=== PATIENT | female | born 1970 | race Caucasian/White ===

== ENCOUNTER 2016-11-17 08:03 | Day surgery (SDC) | payer BC ==
[2016-11-10 11:42] VITALS: BMI 20.3
[~2016-11-17 08:03] MED LIST: LACTATED RINGERS 1,000 ML IV SCH
[2016-11-17 09:01] VITALS: RESP 18; TEMP 98.4
[2016-11-17] MEDS ORDERED: PROPOFOL 10 MG/ML 20 ML VIAL IV ONE (09:07)
[2016-11-17] MEDS ORDERED: LIDOCAINE 1% INJ 10MG/ML (20 ML MDV) ONE (09:07)
--- NOTE | 2016-11-17 09:20 | P.PCN ---
Date of Procedure: 11/17/16 Procedure(s) Performed: BRIEF HISTORY: Patient is a 45-year-old, pleasant, white female, scheduled for an upper endoscopy as a part of evaluation of the ascending history of gastroesophageal reflux symptoms for which she is on Prilosec 20 mg daily and doing well. Recently has been having some sore throat and the globus sensation and occasional dysphagia. She is hence scheduled for an upper endoscopy with possible dilation. PROCEDURE PERFORMED: Esophagogastroduodenoscopy with biopsy. PREOPERATIVE DIAGNOSIS: Long-standing history of GERD/globus pharyngeus. IV sedation per anesthesia. PROCEDURE: After informed consent was obtained, the patient was brought into the endoscopy unit. IV conscious sedation was administered by Anesthesia under continuous monitoring. Initially the Olympus GIF-140 video endoscope was inserted into the mouth. Esophagus intubated without any difficulty. It was gradually advanced into the stomach and duodenum and carefully examined. The bulb and the second part of the duodenum appeared normal. The scope at this time was withdrawn to the stomach, adequately insufflated with air, and upon careful examination, mucosa of the antrum, had a 5-6 mm the submucosal polyp that was biopsied. The body, cardia and the fundus appeared normal. The scope was then withdrawn into the esophagus. The GE junction was located at 39 cm from the incisors. The esophagus appeared normal. There were no erosions or ulcerations seen and the patient tolerated the procedure well. IMPRESSION: 1. 5-6 mm submucosal polyp in the antrum of the stomach status post biopsy. 2. Normal-appearing esophagus with no evidence of esophagitis or esophageal stricture. RECOMMENDATIONS: The findings of this examination were discussed with the patient as well as her family. She was advised to follow with the biopsy results. In the meantime she will continue with Prilosec 20 mild grams daily and continue to follow antireflux measures..
[2016-11-17 09:45] VITALS: BP 98/67; PULSE 73
== END 2016-11-17 09:56 | disposition home or self-care (01) ==
LOC: ORWHC2ENDO 08:03
PROVIDERS: ATTEND Internal Medicine Gastroenterology
DX: K29.50 Unspecified chronic gastritis without bleeding (principal); K31.7 Polyp of stomach and duodenum; K21.9 Gastro-esophageal reflux disease without esophagitis; F45.8 Other somatoform disorders; J02.9 Acute pharyngitis, unspecified; Z79.899 Other long term (current) drug therapy
CPT/HCPCS: 81025; 88305; 88342; 43239; J2001; J2704

== ENCOUNTER → 2016-12-31 | Outpatient (CLI) | payer BC ==
--- NOTE | 2017-01-01 13:06 | ECHOF ---
Referral Reason:C50.42 breast ca Z01.818 chemo MEASUREMENTS -------- HEIGHT: 165.1 cm WEIGHT: 55.8 kg BP: 108/56 RVIDd: 2.3 cm (< 3.3) IVSd: 1.0 cm (0.6 - 1.1) LVIDd: 4.2 cm (3.9 - 5.3) LVPWd: 0.9 cm (0.6 - 1.1) IVSs: 1.2 cm LVIDs: 2.7 cm LVPWs: 1.2 cm LA Diam: 2.5 cm (2.7 - 3.8) LAESV Index (A-L): 20.67 ml/m Ao Diam: 3.1 cm (2.0 - 3.7) AV Cusp: 2.4 cm (1.5 - 2.6) MV EXCURSION: 14.056 mm (> 18.000) MV EF SLOPE: 141 mm/s (70 - 150) EPSS: 0.5 cm MV E Dany: 0.85 m/s MV DecT: 163 ms MV A Dany: 0.44 m/s MV E/A Ratio: 1.94 RAP: 5.00 mmHg RVSP: 16.42 mmHg FINDINGS -------- Sinus rhythm. This was a technically good study. The left ventricular size is normal. Left ventricular wall thickness is normal. Overall left ventricular systolic function is normal with, an EF between 55 - 60 %. The right ventricle is normal in size and function. Normal LA size by volume 22+/-6 ml/m2. The right atrium is normal in size. The aortic valve is trileaflet and appears structurally normal. The mitral valve leaflets are mildly thickened. The tricuspid valve appears structurally normal. Trace/mild (physiologic) pulmonic regurgitation. The aortic root size is normal. The inferior vena cava is mildly dilated. The pericardium is normal. CONCLUSIONS -------- 1. Sinus rhythm. 2. The mitral valve leaflets are mildly thickened. 3. The tricuspid valve appears structurally normal. 4. Trace/mild (physiologic) pulmonic regurgitation. 5. The aortic root size is normal. 6. The inferior vena cava is mildly dilated. 7. The pericardium is normal. 8. This was a technically good study. 9. The left ventricular size is normal. 10. Left ventricular wall thickness is normal. 11. Overall left ventricular systolic function is normal with, an EF between 55 - 60 %. 12. The right ventricle is normal in size and function. 13. Normal LA size by volume 22+/-6 ml/m2. 14. The right atrium is normal in size. 15. The aortic valve is trileaflet and appears structurally normal. DYEING MACHINE BACK TENDER: Gaviota Segura RDCS
== END | disposition home or self-care (01) ==
LOC: RADECHMAIN 13:54
PROVIDERS: ATTEND Internal Medicine Hematology & Oncology
DX: C50.919 Malignant neoplasm of unspecified site of unspecified female breast (principal); I05.9 Rheumatic mitral valve disease, unspecified
CPT/HCPCS: 93306

== ENCOUNTER 2017-03-25 06:54 | Day surgery (SDC) | payer BC ==
[2017-03-21 10:25] VITALS: BMI 19.5
[~2017-03-25 06:54] MED LIST changes: +LIDOCAINE 1% 20 ML VIAL (10MG/ML) FOR IV START INTRADERMA PRN
[2017-03-25 07:16] VITALS: TEMP 97.6
[2017-03-25] MEDS ORDERED: PROPOFOL 10 MG/ML 20 ML VIAL IV ONE (07:42)
[2017-03-25] MEDS ORDERED: ePHEDrine 50 MG/ML 1 ML AMP ONE (07:42)
--- NOTE | 2017-03-25 08:12 | P.OP ---
Date of Procedure: 03/25/17 Preoperative Diagnosis: Family H/O colon ca Personal H/O breast ca Postoperative Diagnosis: Same Procedure(s) Performed: Colonoscopy with biopsy Implants: NA Anesthesia: MAC Surgeon: Danica Alberto Pathology: other Condition: stable Disposition: PACU Indications for Procedure: 46 years old female with family history of colon cancer presents for screening colonoscopy. Informed consent obtained and she elected to undergo the procedure Operative Findings: Single 5 mm sigmoid colon polyp Small internal hermorrhoids Description of Procedure: The patient was brought to the endoscopy suite and placed in lateral decubitus position. IV sedation was given as per anesthesia team. Patient was on continuous vitals and pulse oximetry monitoring throughout the procedure. A timeout was performed to verify correct patient and correct procedure. Perianal examination did not show any external hemorrhoids. Digital rectal examination was performed. No masses or gross blood. A well-lubricated Olympus colonoscope was passed per rectally and was gradually advanced beyond the sigmoid colon, splenic flexure, transverse colon, hepatic flexure and cecum. The ileocecal valve was visualized as well as the appendiceal orifice . The colonoscope was gradually withdrawn inspecting all the mucosal surfaces. Bowel prep was good. No masses, AV malformations noted. Single 5 mm sigmoid colon polyp which was removed using cold biopsy forceps. No sigmoid diverticulosis seen The scope was gradually withdrawn and retroflexed in the rectum . Grade 1 internal hemorrhoids seen. Total withdrawal time was greater than 6 minutes . Patient tolerated the procedure well and was taken to post anesthesia care unit in stable condition. Recommend repeat colonoscopy in 5 years . Final pathology: COLON, SIGMOID, BIOPSY: MATURE BENIGN COLONIC MUCOSA WITH A NORMAL CRYPT ARCHITECTURE AND FOCAL LYMPHOID AGGREGATE FORMATION.
[2017-03-25 08:17] VITALS: RESP 16
[2017-03-25 08:57] VITALS: BP 98/69; PULSE 62
--- NOTE | 2017-04-11 11:43 | P.GSHP ---
History of Present Illness H&P Date: 03/25/17 Chief Complaint: Rectal bleeding 46 yrs old female presents with bright red rectal bleeding. No change in bowel habits. 6lbs weight loss. S/P bilateral mastectomy with radiation and chemotherapy diagnosed in October 2015. Family history of colon cancer ROS Additionally reports: Constitutional: No fever, chills or rigors. HEENT: No difficulty with hearing, vision and swallowing. Lymphatic: No axillary, inguinal and cervical swellings. Endocrine: No thyroid disorders. Denies history of diabetes. Respiratory: No chest pain, shortness of breath, and cough. No hemoptysis. Cardiovascular: No palpitations, irregular HR Gastrointestinal: Has heartburn. No nausea or vomiting. Genitourinary: No increase in urinary frequency or urgency. No hematuria. Musculoskeletal: Has back pain, joint stiffness Neurologic: No history of seizure disorder and headaches. Psychiatric: Denies depression or anxiety . No suicidal ideation. Hematologic: Denies any abnormal mucosal bleeding or easy bruising. Physical Exam Patient is a 46-year-old female. Constitutional: General Appearance: healthy-appearing, well-nourished, and well- developed. Level of Distress: NAD. Ambulation: ambulating normally. Psychiatric: Insight: good judgement. Orientation: to time, place, and person. Head: Head: normocephalic and atraumatic. Eyes: Lids and Conjunctivae: no discharge or pallor and non-injected. Sclerae: non-icteric. ENMT: Oropharynx: moist mucous membranes. Abdomen: Bowel Sounds: normal. Inspection and Palpation: no tenderness or guarding and soft and non-distended. Musculoskeletal:: Motor Strength and Tone: normal and normal tone. Joints, Bones , and Muscles: normal movement of all extremities. Extremities: no cyanosis or edema. Neurologic: Gait and Station: normal gait and station. Cranial Nerves: grossly intact. Assessment / Plan 1. Colonoscopy with possible biopsy 2. Informed consent obtained from the patient after explaining the risks, benefits and potential complications of colonoscopy including bleeding and perforation 3. Patient demonstrated understanding of the procedure and agreed to undergo colonoscopy with possible biopsy/polypectomy 4. Escript for bowel prep 1. Painless rectal bleeding K62.5: Hemorrhage of anus and rectum 2. History of malignant neoplasm of breast Z85.3: Personal history of malignant neoplasm of breast 3. Family history of cancer of colon Z80.0: Family history of malignant neoplasm of digestive organs Past Medical History Past Medical History: Cancer, GERD/Reflux, Thyroid Disorder Additional Past Medical History / Comment(s): hiatal hernia, hx. breast cancer 2016-chemo & radiation, probable celiac disease, , RECENT DX EARLY Krzysztof's History of Any Multi-Drug Resistant Organisms: None Reported Past Surgical History: Breast Surgery Additional Past Surgical History / Comment(s): bilateral mastectomy w/ reconstruction,lymphnodes removed-states "cannot have IVs to left arm." COLONOSCOPY. EGD 11/17/16 Past Anesthesia/Blood Transfusion Reactions: Postoperative Nausea & Vomiting ( PONV) Smoking Status: Former smoker - Past Family History Mother Family Medical History: No Reported History Medications and Allergies Home Medications Medication Instructions Recorded Confirmed Type Cholecalciferol [Vitamin D3] 2,000 unit PO DAILY 11/10/16 03/25/17 History Cyanocobalamin (Vitamin B-12) 1,000 mcg PO DAILY 11/10/16 03/25/17 History [Vitamin B-12] Magnesium 200 mg PO DAILY 11/10/16 03/25/17 History Enfield-3 Fatty Acids [Enfield-3] 1,000 mg PO DAILY 11/10/16 03/25/17 History Omeprazole [PriLOSEC] 20 mg PO AC-BRKFST 11/10/16 03/25/17 History Pyridoxine [Vitamin B-6] 50 mg PO DAILY 11/10/16 03/25/17 History Tamoxifen [Nolvadex] 10 mg PO DAILY 11/10/16 03/25/17 History Venlafaxine HCl [Effexor] 37.5 mg PO DAILY 03/21/17 03/25/17 History Allergies Allergy/AdvReac Type Severity Reaction Status Date / Time amoxicillin [Amoxicillin] Allergy Rash/Hives Verified 03/21/17 10:19 gluten Allergy GI problems Verified 03/21/17 10:19 Penicillins Allergy Rash/Hives Verified 03/21/17 10:19 Surgical - Exam Vital Signs Temp Pulse Resp BP Pulse Ox 97.6 F 67 14 102/69 99 03/25/17 07:15 03/25/17 07:15 03/25/17 07:15 03/25/17 07:15 03/25/17 07:15
== END 2017-03-25 09:08 | disposition home or self-care (01) ==
LOC: ORWHC2ENDO 06:54
PROVIDERS: ATTEND Surgery
DX: Z12.11 Encounter for screening for malignant neoplasm of colon (principal); K63.5 Polyp of colon; K64.8 Other hemorrhoids; Z80.0 Family history of malignant neoplasm of digestive organs; Z87.19 Personal history of other diseases of the digestive system; K21.9 Gastro-esophageal reflux disease without esophagitis; E06.3 Autoimmune thyroiditis; Z85.3 Personal history of malignant neoplasm of breast; Z92.21 Personal history of antineoplastic chemotherapy; Z92.3 Personal history of irradiation; Z90.13 Acquired absence of bilateral breasts and nipples; Z79.899 Other long term (current) drug therapy; Z88.1 Allergy status to other antibiotic agents; Z88.0 Allergy status to penicillin; Z91.018 Allergy to other foods; Z87.891 Personal history of nicotine dependence
CPT/HCPCS: 81025; 88305; 45380; J2704

== ENCOUNTER → 2017-11-17 | Outpatient (CLI) | payer BC ==
[2017-11-17 10:13] LABS: T4, Free (Free Thyroxine) 0.89 ng/dL (0.78-2.19)
== END | disposition home or self-care (01) ==
LOC: LABWHC1 08:59
PROVIDERS: ATTEND Clinical Nurse Specialist Women's Health
DX: Z13.220 Encounter for screening for lipoid disorders (principal); Z86.39 Personal history of other endocrine, nutritional and metabolic disease
CPT/HCPCS: 36415; 80061; 84439; 84443; 84481; 86376

== ENCOUNTER → 2018-02-02 | Outpatient (CLI) | payer BC ==
--- NOTE | 2018-02-02 14:35 | NM ---
EXAMINATION TYPE: NM bone scan whole body DATE OF EXAM: 02/02/2018 COMPARISON: NONE HISTORY: Breast CA C50.412, M54.9 Back Pain,Z03.89 Observe Delayed whole-body scanning was performed following the injection of 23.8 mCi Tc 99m MDP. Images acq uired 3.25 hours post injection. FINDINGS: There is homogeneous distribution radiotracer without evidence for intense uptake to suggest metastat ic disease or fracture. Mild degenerative uptake is noted about the shoulders, sternoclavicular joint s and cervical spine. IMPRESSION: No evidence for metastatic uptake at this time.
== END | disposition home or self-care (01) ==
LOC: RADNMMAIN 10:23
PROVIDERS: ATTEND Internal Medicine Hematology & Oncology
DX: C50.412 Malignant neoplasm of upper-outer quadrant of left female breast (principal); M54.9 Dorsalgia, unspecified; Z88.0 Allergy status to penicillin
CPT/HCPCS: 78306; A9503

== ENCOUNTER → 2019-10-29 | Outpatient (CLI) | payer BC ==
--- NOTE | 2019-10-30 09:13 | CT ---
EXAMINATION TYPE: CT ChestAbdPelvis w con DATE OF EXAM: 10/29/2019 COMPARISON: CT abdomen pelvis dated 01/27/2012 HISTORY: Left sided abdominal pain and cough. History of left sided breast cancer. CT DLP: 482.3 mGycm. Automated Exposure Control for Dose Reduction was Utilized. CONTRAST: CT scan of the thorax, abdomen and pelvis is performed with IV Contrast, patient injected with 100ml mL of Isovue 300. FINDINGS: LUNGS: There is biapical pleural parenchymal scarring. There is a 2 x 3 mm left upper lobe groundglas s nodule on series 5 image 14. Possible post radiation change or scarring is seen along the anterior left upper lobe posterior to the left breast implant. The lungs are grossly clear, there is no concer millicent parenchymal mass or nodule identified. There is no pleural effusion or pneumothorax seen. The tracheobronchial tree is patent. MEDIASTINUM: There are no greater than 1 cm hilar or mediastinal lymph nodes. No pericardial effusi on is seen. OTHER: There are bilateral breast implants and sequela of left axillary lymph node dissection. Bilat eral mastectomies have been performed. No suspicious internal mammary adenopathy nor supraclavicular adenopathy. No suspicious right axillary adenopathy. LIVER/GB: Hepatic parenchyma is diffusely hypoattenuated in comparison to that of the spleen, most co mmonly seen in hepatic steatosis. This finding limits evaluation for hepatic masses. No gross evidenc e of hepatic mass is seen. No intrahepatic biliary ductal dilatation. No radiopaque evidence of liang lithiasis on CT. PANCREAS: No significant abnormality is seen. No ductal dilatation. SPLEEN: No splenomegaly. Punctate splenule is seen adjacent to the spleen. ADRENALS: No nodularity or thickening. KIDNEYS: Kidneys enhance and excrete symmetrically without hydronephrosis. BOWEL: No dilated large or small bowel. Mild degree colonic fecal stasis. GENITAL ORGANS: There is a left adnexal lesion that is multiloculated measuring 6.1 x 4.3 cm. Pelvic ultrasound is recommended for further characterization. LYMPH NODES: No greater than 1cm abdominal or pelvic lymph nodes are appreciated. OSSEOUS STRUCTURES: There is a 1.0 cm lucent lesion of the T6 vertebral body that appears to have str ipe sign and is most likely related to a benign hemangioma. This could be confirmed with MRI of the t horacic spine. Remainder the osseous structures demonstrate no suspicious lesion. Minimal degenerativ e change. IMPRESSION: 1. Probable thoracic spine vertebral body hemangioma that could be confirmed with MRI of the thoracic spine. 2. Hepatic steatosis, although limits evaluation for hepatic masses no focal hepatic mass is seen on today's exam. 3. Left adnexal 6.1 cm hypoattenuated probable cystic lesion. Pelvic ultrasound is recommended for fu rther characterization and to assess for vascular flow as this size increases the risk of ovarian tor darian. 4. Subtle 2 x 3 mm left upper lobe groundglass nodule that could be inflammatory, less likely infecti ous or less likely neoplastic. Follow-up CT thorax should be considered in 3-6 months.
== END | disposition home or self-care (01) ==
LOC: RADCTMAIN 15:09
PROVIDERS: ATTEND Internal Medicine Hematology & Oncology
DX: K76.0 Fatty (change of) liver, not elsewhere classified (principal); Z88.0 Allergy status to penicillin; C50.412 Malignant neoplasm of upper-outer quadrant of left female breast
CPT/HCPCS: 71260; 74177; Q9967

== ENCOUNTER → 2019-11-08 | Outpatient (CLI) | payer BC ==
[2019-11-08 17:17] LABS: Basophils % (A) 1 %; Eosinophils # (A) 0.1 k/uL (0-0.7); Eosinophils % (A) 2 %; HCT 33.7 % (34.0-46.0); HGB 11.1 gm/dL (11.4-16.0); Lymphocytes # (A) 1.6 k/uL (1.0-4.8); Lymphocytes % (A) 32 %; MCV 90.9 fL (80.0-100.0); Mean Platelet Volume 7.9; Monocytes # (A) 0.4 k/uL (0-1.0); Monocytes % (A) 7 %; Neutrophils % (A) 58 %; Platelet Count 205 k/uL (150-450); RBC 3.71 m/uL (3.80-5.40); RDW 12.5 % (11.5-15.5); WBC 5.1 k/uL (3.8-10.6)
== END | disposition home or self-care (01) ==
LOC: LABPAT 15:30
PROVIDERS: ATTEND Obstetrics & Gynecology
DX: Z01.818 Encounter for other preprocedural examination (principal); R93.5 Abnormal findings on diagnostic imaging of other abdominal regions, including retroperitoneum
CPT/HCPCS: 36415; 85025

== ENCOUNTER 2019-11-13 07:07 | Day surgery (SDC) | payer BC ==
[~2019-11-13 07:07] MED LIST changes: +DEXAMETHASONE SOD PHOSPHATE 10 MG/ML 1 ML VIAL IV ONE; -LIDOCAINE 1% 20 ML VIAL (10MG/ML) FOR IV START INTRADERMA PRN; +MIDAZOLAM 2 MG/2 ML VIAL IV PRN; +ONDANSETRON 4 MG/2 ML VIAL IVP ONE; +Pre Op ABX Message 1 EACH MISC MISCELLANE ONE; +SCOPOLAMINE 1.5MG/72HR PATCH TRANSDERM ONE
[2019-11-13] MEDS ORDERED: LIDOCAINE 1% INJ 10MG/ML (20 ML MDV) ONE (08:18)
[2019-11-13] MEDS ORDERED: KETOROLAC 30 MG/ML 1 ML VIAL ONE (08:18)
[2019-11-13] MEDS ORDERED: MIDAZOLAM 2 MG/2 ML VIAL ONE (08:18)
[2019-11-13] MEDS ORDERED: fentaNYL (PF) 50 MCG/ML 2 ML AMP ONE (08:18)
[2019-11-13] MEDS ORDERED: PROPOFOL 10 MG/ML 20 ML VIAL IV ONE (08:18)
[2019-11-13 09:00] VITALS: TEMP 97.7
[2019-11-13] MEDS ORDERED: KETOROLAC 30 MG/ML 1 ML VIAL IVP PRN (09:03)
[2019-11-13] MEDS ORDERED: Acetaminophen-Codeine 300-30mg TAB PO PRN ×2 (09:03)
[2019-11-13] MEDS ORDERED: SIMETHICONE 80 MG CHEWABLE PO PRN (09:03)
[2019-11-13] MEDS ORDERED: METOCLOPRAMIDE 5 MG/ML 2 ML VIAL IVP PRN (09:03)
[2019-11-13] MEDS ORDERED: IBUPROFEN 600 MG TAB PO PRN (09:03)
[2019-11-13] MEDS ORDERED: ONDANSETRON 4 MG/2 ML VIAL IVP PRN (09:03)
[2019-11-13] MEDS: HYDROmorphone 0.5 MG/0.5 ML SYRINGE IVP PRN ×2 (09:07→09:25)
--- NOTE | 2019-11-13 09:10 | P.OP ---
Date of Procedure: 11/13/19 Preoperative Diagnosis: #1. Thickened endometrial stripe on tamoxifen Postoperative Diagnosis: Same Procedure(s) Performed: #1. Diagnostic hysteroscopy #2. Dilation and curettage Anesthesia: other (Gen. by LMA) Surgeon: Jonah Cardona Estimated Blood Loss (ml): 5 IV fluids (ml): 400 Urine output (ml): 20 Pathology: other (Endometrial curettings) Condition: stable Disposition: PACU Operative Findings: Preoperative pelvic examination demonstrated a 4 week anteverted mobile normal shaped uterus with normal adnexa bilaterally. Intraoperatively, the uterus sounded to approximately 8 cm. Using the hysteroscope, there were some areas that appeared to be potentially cystic in the left cornual region but, overall, the entire endometrial cavity appeared entirely atrophic. Curettage produced a minimal to no tissue despite thorough and circumferential curettage. The typical gritty texture was encountered throughout. Description of Procedure: The patient was prepped and draped in usual fashion after general anesthesia was administered by the anesthesiologist. A weighted speculum was placed in the bladder draining approximately 20 mL of clear delfino urine. The anterior lip of the cervix was grasped with a single-tooth tenaculum and the uterus sounded to approximately 8 cm as noted above. Serial dilation was carried out to admit the diagnostic hysteroscope which was placed to the fundus and the uterus distended with saline. Findings are as noted above with what appeared to be atrophy throughout with some areas of banding near the top that could explain the potential cystic appearance on ultrasound. After adequate curettage been carried out and no evidence of pathology noted, the scope was removed and set aside in favor of a small sharp curette which was utilized to thoroughly and circumferentially curet the entire uterine cavity onto a Telfa placed in the vagina. The typical gritty texture was encountered throughout and there was minimal tissue returned. All instrumentation was then removed and the specimen sent for pathological diagnoses. There was no ongoing bleeding from either the cervix or the tenaculum site. Estimated blood loss for the case was less than 5 mL. There were no complications. All sponge, instrument, and needle counts were correct. The patient tolerated the procedure well and proceeded to the recovery room in stable condition.
[2019-11-13] MEDS ORDERED: LACTATED RINGERS 1,000 ML IV SCH (09:15)
[2019-11-13 09:34] VITALS: RESP 16
[2019-11-13 10:04] VITALS: BP 109/70; PULSE 65
== END 2019-11-13 10:24 | disposition home or self-care (01) ==
LOC: OR 07:07
PROVIDERS: ATTEND Obstetrics & Gynecology
DX: N80.9 Endometriosis, unspecified (principal); K21.9 Gastro-esophageal reflux disease without esophagitis; F41.9 Anxiety disorder, unspecified; D64.9 Anemia, unspecified; Z86.001 Personal history of in-situ neoplasm of cervix uteri; Z79.810 Long term (current) use of selective estrogen receptor modulators (SERMs); Z79.899 Other long term (current) drug therapy; Z88.0 Allergy status to penicillin; Z85.3 Personal history of malignant neoplasm of breast; Z90.13 Acquired absence of bilateral breasts and nipples; Z92.21 Personal history of antineoplastic chemotherapy; Z98.890 Other specified postprocedural states; Z88.1 Allergy status to other antibiotic agents; Z82.49 Family history of ischemic heart disease and other diseases of the circulatory system; Z80.49 Family history of malignant neoplasm of other genital organs
CPT/HCPCS: 81025; 88305; 58558; J2250; J2405; J2001; J3010; J1885; J2704; J1170

== ENCOUNTER → 2020-03-19 | Outpatient (CLI) | payer BC ==
[2020-03-19 08:50] LABS: Basophils % (A) 1 %; Eosinophils # (A) 0.1 k/uL (0-0.7); Eosinophils % (A) 3 %; HCT 36.9 % (34.0-46.0); HGB 11.6 gm/dL (11.4-16.0); Lymphocytes # (A) 1.4 k/uL (1.0-4.8); Lymphocytes % (A) 35 %; MCH 30.1 pg (25.0-35.0); MCHC 31.3 g/dL (31.0-37.0); Mean Platelet Volume 7.1; Monocytes # (A) 0.3 k/uL (0-1.0); Monocytes % (A) 6 %; Neutrophils # (A) 2.2 k/uL (1.3-7.7); Neutrophils % (A) 54 %; Platelet Count 210 k/uL (150-450); RBC 3.84 m/uL (3.80-5.40); RDW 12.3 % (11.5-15.5)
[2020-03-19 16:48] LABS: ALT 16 U/L (8-44); AST 24 U/L (13-35); African American GFR (CKD) 76.6 (60.0-200.0); Alkaline Phosphatase 46 U/L (41-126); Calcium 9.5 mg/dL (8.7-10.3); Carbon Dioxide 23.6 mmol/L (21.6-31.8); Chloride 107 mmol/L (96-109); Chol/HDL Ratio 1.66; Cholesterol 158 mg/dL (0-200); Glucose 97 mg/dL (70-110); Non-African American GFR(CKD) 66.1 (60.0-200.0); Potassium 3.9 mmol/L (3.5-5.5); Sodium 137 mmol/L (135-145); Total Bilirubin 0.4 mg/dL (0.2-1.2); Total Protein 6.4 g/dL (6.2-8.2); Triglycerides <50.0 mg/dL (0.0-149.0)
== END | disposition home or self-care (01) ==
LOC: LABWHC1 07:27
PROVIDERS: ATTEND Nurse Practitioner Adult Health
DX: Z00.00 Encounter for general adult medical examination without abnormal findings (principal); Z11.59 Encounter for screening for other viral diseases
CPT/HCPCS: 36415; 80053; 80061; 84439; 84443; 85025; 86803

== ENCOUNTER → 2020-12-15 | Outpatient (CLI) | payer BC ==
--- NOTE | 2020-12-16 09:59 | USB ---
Reason for exam: clinical finding. History: Patient has history of breast cancer at age 44 and is nulliparous. Malignant US biopsy breast VAD LT of the left breast, October 29, 2015. Malignant US biopsy breast add'l VAD LT of the left breast, October 29, 2015. Saline implants in both breasts, 2009. Benign excisional biopsy of the right breast, August 31, 2002. Mastectomy of both breasts. Took hormonal contraceptives for 3 years beginning at age 20. Indicated problem(s): lump or thickening in the left breast. Physical Findings: Nurse Summary: lump in left axilla x 3 weeks (nurse db). US Breast Axilla LT Left breast axilla ultrasound demonstrates a single nonenlarged, benign appearing node noted in the axilla. These results were verbally communicated with the patient and result sheet given to the patient on 12/15/20. ASSESSMENT: Benign, BI-RAD 2 RECOMMENDATION: Clinical management of the left breast. Manage on a clinical basis. Any persistent or enlarging palpable area can be rescanned.
== END | disposition home or self-care (01) ==
LOC: RADUSWWP 07:33
PROVIDERS: ATTEND Internal Medicine Hematology & Oncology
DX: Z85.3 Personal history of malignant neoplasm of breast (principal)

== ENCOUNTER → 2021-05-22 | Outpatient (CLI) | payer BC ==
[2021-05-22 12:08] LABS: Basophils # (A) 0.04 X 10*3/uL (0.00-0.10); Eosinophils # (A) 0.11 X 10*3/uL (0.04-0.35); Eosinophils % (A) 2.6 %; HCT 36.7 % (37.2-46.3); HGB 11.7 g/dL (12.0-15.0); Lymphocytes # (A) 1.55 X 10*3/uL (0.90-5.00); MCH 29.4 pg (27.0-32.0); MCHC 31.9 g/dL (32.0-37.0); MCV 92.2 fL (80.0-97.0); Mean Platelet Volume 10.1 fL (9.5-12.2); Monocytes % (A) 7.2 %; Neutrophils # (A) 2.18 X 10*3/uL (1.80-7.70); Platelet Count 235 X 10*3/uL (140-440); RBC 3.98 X 10*6/uL (4.10-5.20); RDW 12.1 % (11.5-14.5); WBC 4.19 X 10*3/uL (4.50-10.00)
[2021-05-22 17:15] LABS: Hemoglobin A1C 5.4 % (4.0-6.0)
[2021-05-22 17:21] LABS: African American GFR (CKD) 76.1 (60.0-200.0); Albumin 4.8 g/dL (3.80-4.90); Albumin/Globulin Ratio 2.4 (1.60-3.17); Anion Gap 11.5 mmol/L (4.00-12.00); Calcium 9.2 mg/dL (8.7-10.3); Carbon Dioxide 21.5 mmol/L (21.6-31.8); Chol/HDL Ratio 1.93; Non-African American GFR(CKD) 65.6 (60.0-200.0); Potassium 4.4 mmol/L (3.5-5.5); Total Bilirubin 0.2 mg/dL (0.3-1.2); Total Protein 6.8 g/dL (6.2-8.2)
[2021-05-22 17:28] LABS: T4, Free (Free Thyroxine) 1.1 ng/dL (0.80-1.80)
== END | disposition home or self-care (01) ==
LOC: LABWHC1 07:00
PROVIDERS: ATTEND Nurse Practitioner Adult Health
DX: Z00.00 Encounter for general adult medical examination without abnormal findings (principal); R63.5 Abnormal weight gain
CPT/HCPCS: 36415; 80053; 80061; 83036; 84439; 84443; 85025

== ENCOUNTER → 2021-11-20 | Outpatient (CLI) | payer BC ==
--- NOTE | 2021-11-20 15:07 | USB ---
Reason for exam: clinical finding. History: Patient has history of breast cancer at age 44 and is nulliparous. Malignant US biopsy breast VAD LT of the left breast, October 29, 2015. Malignant US biopsy breast add'l VAD LT of the left breast, October 29, 2015. Saline implants in both breasts, 2009. Benign excisional biopsy of the right breast, August 31, 2002. Mastectomy of both breasts. Took hormonal contraceptives for 3 years beginning at age 20. Indicated problem(s): lump or thickening in the right breast. Physical Findings: A clinical breast exam by your physician is recommended on an annual basis and results should be correlated with mammographic findings. US Breast Limited BILAT Technologist: Carolann Noriega Right limited breast ultrasound including focal area of concern, retroareolar and axilla demonstrates a 0.8 x 0.6 x 0.3cm oval, obscured, avascular, hypoechoic lesion at 3 o'clock palpable, 8cm from nipple Left limited breast ultrasound including focal area of concern, retroareolar and axilla demonstrates no cystic or solid lesion seen. ASSESSMENT: Suspicious, BI-RAD 4 RECOMMENDATION: Surgical consultation and ultrasound core biopsy of the right breast. (FNA +/- Core) Subpectoral implants, high risk. Called Dr. Vivar's office with mammographic findings. Patient following up with her surgeon Dr. Ashley Jefferson. PRELIMINARY REPORT CALLED AND FAXED TO DR. JEFFERSON ON 11/20/21. Breast MRI of both breasts. Consider further imaging.
== END | disposition home or self-care (01) ==
LOC: RADUSWWP 12:42
PROVIDERS: ATTEND Internal Medicine Hematology & Oncology
DX: N63.0 Unspecified lump in unspecified breast (principal); Z90.13 Acquired absence of bilateral breasts and nipples; Z85.3 Personal history of malignant neoplasm of breast

== ENCOUNTER → 2022-03-18 | Outpatient (CLI) | payer BC ==
--- NOTE | 2022-03-18 10:53 | CT ---
EXAMINATION TYPE: CT abdomen pelvis wo con CT DLP: 614 mGycm, Automated exposure control for dose reduction was used. DATE OF EXAM: 03/18/2022 10:35 AM COMPARISON: 10/29/2019 CLINICAL INDICATION:Female, 51 years old with history of R10.32 LLQ pain; Left lower quadrant pain, s tomach pains TECHNIQUE: Axial CT of the abdomen and pelvis . Sagittal and coronal reformats were created on a [employer] workstation. Contrast used: None Oral contrast used: without Oral Contrast FINDINGS: LOWER CHEST: Partially visualized breast implants. ABDOMEN LIVER: Unremarkable GALLBLADDER AND BILE DUCTS: Unremarkable. PANCREAS: Unremarkable. SPLEEN: Unremarkable. ADRENAL GLANDS: Unremarkable. KIDNEYS AND URETERS: No evidence of hydronephrosis or renal calculus. The ureters are unremarkable. PELVIS BLADDER: Unremarkable REPRODUCTIVE: Unremarkable. ABDOMEN & PELVIS STOMACH AND BOWEL: Stomach is dilated with ingested contents. No definitive abnormality of the stomac h or duodenum. The large intestine infiltrates mild/moderate stool burden. No evidence of bowel obstr uction. PERITONEUM: No evidence of pneumoperitoneum or free fluid. VASCULATURE: No evidence of aortic aneurysm. MUSCULOSKELETAL: No acute osseous abnormalities. LYMPH NODES: No gross evidence for lymphadenopathy. SOFT TISSUE/ABDOMINAL WALL: Unremarkable IMPRESSION: No acute intra-abdominal process.
== END | disposition home or self-care (01) ==
LOC: RADCTMAIN 10:15
PROVIDERS: ATTEND Family Medicine
DX: R10.32 Left lower quadrant pain (principal)
CPT/HCPCS: 74176

== ENCOUNTER → 2022-07-21 | Outpatient (CLI) | payer BC ==
[2022-07-21 15:35] LABS: Basophils # (A) 0.05 X 10*3/uL (0.00-0.10); Eosinophils # (A) 0.17 X 10*3/uL (0.04-0.35); Eosinophils % (A) 3.2 %; HCT 35.8 % (37.2-46.3); HGB 11.7 g/dL (12.0-15.0); Immature Grans, Automated 0.4 %; Lymphocytes # (A) 1.43 X 10*3/uL (0.90-5.00); Lymphocytes % (A) 27.3 %; MCH 29.7 pg (27.0-32.0); MCHC 32.7 g/dL (32.0-37.0); MCV 90.9 fL (80.0-97.0); Mean Platelet Volume 10.6 fL (9.5-12.2); Monocytes # (A) 0.63 X 10*3/uL (0.20-1.00); NRBC Per 100 WBC 0 /100 WBCS (0.0-0.0); Neutrophils # (A) 2.94 X 10*3/uL (1.80-7.70); Neutrophils % (A) 56.1 %; Platelet Count 211 X 10*3/uL (140-440); RBC 3.94 X 10*6/uL (4.10-5.20); RDW 12.2 % (11.5-14.5); WBC 5.24 X 10*3/uL (4.50-10.00)
[2022-07-21 17:08] LABS: % Iron Saturation 25.32 (12.00-45.00); ALT 20 U/L (8-44); AST 27 U/L (13-35); African American GFR (CKD) 80.1 (60.0-200.0); Albumin 4.4 g/dL (3.8-4.9); Albumin/Globulin Ratio 2.21 (1.60-3.17); Alkaline Phosphatase 47 U/L (41-126); BUN/Creat Ratio 15.42 Ratio (12.00-20.00); Blood Urea Nitrogen 14.7 mg/dL (9.0-27.0); Calcium 9.7 mg/dL (8.7-10.3); Carbon Dioxide 22.5 mmol/L (20.0-27.5); Chloride 104 mmol/L (96-109); Chol/HDL Ratio 1.91 Ratio; Glucose 98 mg/dL (70-110); Iron 95 ug/dL (50-170); LDL Cholesterol,Calculated 71.8 mg/dL (0.0-131.0); Non-African American GFR(CKD) 69.1 (60.0-200.0); Potassium 4.4 mmol/L (3.5-5.5); Sodium 138 mmol/L (135-145); Total Iron Binding Capacity 375 ug/dL (228-460); Total Protein 6.5 g/dL (6.2-8.2); VLDL Calculation 12.82 mg/dL (5.00-40.00)
== END | disposition home or self-care (01) ==
LOC: LABWHC1 09:00
PROVIDERS: ATTEND Family Medicine
DX: Z00.00 Encounter for general adult medical examination without abnormal findings (principal); R53.83 Other fatigue
CPT/HCPCS: 36415; 80053; 80061; 82306; 82607; 82746; 83036; 83540; 83550; 84439; 84443; 85025

== ENCOUNTER 2023-05-16 20:16 | Emergency (ER) | payer BC ==
--- NOTE | 2023-05-16 20:22 | ED ---
Chest Pain HPI - General Source: patient, RN notes reviewed Mode of arrival: wheelchair Limitations: no limitations - History of Present Illness MD Complaint: chest pain <Betty Barraza - Last Filed: 05/16/23 21:31> <Best George - Last Filed: 05/16/23 23:37> - General Chief Complaint: Chest Pain Stated Complaint: Chest Pain,sob, dizziness Time Seen by Provider: 05/16/23 20:20 - History of Present Illness Initial Comments: This is a 52 year old female who presents to the emergency department for chest pain and shortness of breath. States that this occurred 45 minutes after drinking wine and eating half of a marijuana gummy. Also feels somewhat dizzy and states that her mouth is dry and she feels dehydrated. Denies any cardiac history. (Betty Barraza) This is a 52-year-old female with a past medical history including previous breast cancer in remission presented to the emergency department for palpitations and chest pain. The patient stated that she was doing her normal routine at night and after dinner experienced chest pressure and palpitations. The patient stated that his been ongoing for the last several hours and stated that she was concerned about this. On arrival, the patient did state that she had continued central chest pressure and stated that her palpitations have improved. The patient denied any shortness of breath however and was otherwise resting in bed comfortably. The patient did state that she took a marijuana gummy prior to arrival but stated that she has done this multiple times in the past. The patient denied any other acute pain or complaints at this time. (Best George) - Related Data Home Medications Medication Instructions Recorded Confirmed Cyanocobalamin (Vitamin B-12) 1,000 mcg PO DAILY 11/10/16 11/08/19 [Vitamin B-12] Tamoxifen [Nolvadex] 20 mg PO HS 11/10/16 11/08/19 Cholecalciferol (Vitamin D3) 1 tab PO DAILY 11/08/19 11/08/19 [Vitamin D3] L.acidoph,Paracasei, B.lactis 1 cap PO DAILY 11/08/19 11/08/19 [Probiotic] LORazepam [Ativan] 0.5 mg PO BID PRN 11/08/19 11/08/19 Venlafaxine HCl [Effexor] 75 mg PO HS 11/08/19 11/08/19 Allergies Allergy/AdvReac Type Severity Reaction Status Date / Time amoxicillin [Amoxicillin] Allergy Rash/Hives Verified 05/16/23 20:21 gluten Allergy GI problems Verified 05/16/23 20:21 Penicillins Allergy Rash/Hives Verified 05/16/23 20:21 Review of Systems ROS Other: All systems not noted in ROS Statement are negative. <Betty Barraza - Last Filed: 05/16/23 21:31> ROS Other: All systems not noted in ROS Statement are negative. <Best George - Last Filed: 05/16/23 23:37> ROS Statement: Those systems with pertinent positive or pertinent negative responses have been documented in the HPI. EKG Findings - EKG Comments: EKG Findings:: An EKG was obtained and was interpreted by myself showing a rate of 138, AK interval 144, QR zoroastrianism of 66 and QTC of 536. This EKG showed a sinus tachycardia with no ST segment elevation or depression noted. <Best George - Last Filed: 05/16/23 23:37> Past Medical History Past Medical History: Cancer, GERD/Reflux, Thyroid Disorder Additional Past Medical History / Comment(s): hiatal hernia, hx. breast cancer 2016-chemo & radiation, probable celiac disease, , RECENT DX EARLY [facility]to[facility] History of Any Multi-Drug Resistant Organisms: None Reported Past Surgical History: Breast Surgery Additional Past Surgical History / Comment(s): bilateral mastectomy w/reconstruction,lymphnodes removed-states "cannot have IVs to left arm." COLONOSCOPY. EGD 11/17/16 Past Anesthesia/Blood Transfusion Reactions: Postoperative Nausea & Vomiting (PONV) Past Psychological History: No Psychological Hx Reported Past Alcohol Use History: Occasional Additional Past Alcohol Use History / Comment(s): quit smoking in high school, only smoked for short time Past Drug Use History: None Reported - Past Family History Mother Family Medical History: No Reported History <Betty Barraza - Last Filed: 05/16/23 21:31> General Exam <Betty Barraza - Last Filed: 05/16/23 21:31> Limitations: no limitations General appearance: alert, in no apparent distress Head exam: Present: atraumatic, normocephalic, normal inspection Eye exam: Present: normal appearance, PERRL Pupils: Present: normal accommodation ENT exam: Present: normal exam, normal oropharynx, mucous membranes moist Neck exam: Present: normal inspection, full ROM Respiratory exam: Present: normal lung sounds bilaterally. Absent: respiratory distress Cardiovascular Exam: Present: regular rate, normal rhythm, normal heart sounds GI/Abdominal exam: Present: soft, normal bowel sounds Extremities exam: Present: normal inspection, full ROM Back exam: Present: normal inspection, full ROM Neurological exam: Present: alert, oriented X3, CN II-XII intact Psychiatric exam: Present: normal affect, normal mood Skin exam: Present: warm, dry <Best George - Last Filed: 05/16/23 23:37> - General Exam Comments Initial Comments: Visual Physical Exam Vital signs reviewed General: Well-appearing, nontoxic, no acute distress. Head: Normocephalic, atraumatic Eyes: PERRLA, EOMI ENT: Airway patent Chest: Nonlabored breathing Skin: No visual rash, normal skin tone Neuro: Alert and oriented 3 Musculoskeletal: No gross abnormalities I performed the QuickNote portion of this chart. Signed Betty Barraza PA-C. (Betty Barraza) Course Vital Signs 05/16/23 05/16/23 05/16/23 20:17 21:46 23:12 Temperature 98.6 F Pulse Rate 136 H 86 87 Respiratory 20 18 18 Rate Blood Pressure 132/82 127/88 121/85 O2 Sat by Pulse 99 100 98 Oximetry Chest Pain MDM <Best George - Last Filed: 05/16/23 23:37> - MDM Was pt. sent in by a medical professional or institution (STEPHANIE Tejeda, SUPPLY CHAIN ASSISTANT, urgent care, hospital, or detention...) When possible be specific @ -No Did you speak to anyone other than the patient for history (EMS, parent, family, police, friend...)? What history was obtained from this source @ -No Did you review nursing and triage notes (agree or disagree)? Why? @ -I reviewed and agree with nursing and triage notes Were old charts reviewed (outside hosp., previous admission, EMS record, old EKG, old radiological studies, urgent care reports/EKG's, detention records)? Report findings @ -No old charts were reviewed Differential Diagnosis (chest pain, altered mental status, abdominal pain women, abdominal pain men, vaginal bleeding, weakness, fever, dyspnea, syncope, head ache, dizziness, GI bleed, back pain, seizure, CVA, palpatations, mental health)? @ -ACS, pneumonia, pneumothorax EKG interpreted by me (3pts min.). @ -As above X-rays interpreted by me (1pt min.). @ -Chest x-ray was obtained and was interpreted by myself showing no acute process. CT interpreted by me (1pt min.). @ -None done U/S interpreted by me (1pt. min.). @ -None done What testing was considered but not performed or refused? (CT, X-rays, U/S, labs)? Why? @ -None What meds were considered but not given or refused? Why? @ -None Did you discuss the management of the patient with other professionals (professionals i.e. , PA, SUPPLY CHAIN ASSISTANT, lab, RT, psych nurse, social insurance specialist, oxygen therapy teacher, teacher, correction officer head, behavioral health case manager)? Give summary @ -No Was smoking cessation discussed for >3mins.? @ -No Was critical care preformed (if so, how long)? @ -No Were there social determinants of health that impacted care today? How? (Homelessness, low income, unemployed, alcoholism, drug addiction, transportation, low edu. Level, literacy, decrease access to med. care, long-term, rehab)? @ -No Was there de-escalation of care discussed even if they declined (Discuss DNR or withdrawal of care, Hospice)? DNR status @ -No What co-morbidities impacted this encounter? (DM, HTN, Smoking, COPD, CAD, Cancer, CVA, ARF, Chemo, Hep., AIDS, mental health diagnosis, sleep apnea, morbid obesity)? @ -Previous breast cancer in remission Was patient admitted / discharged? Hospital course, mention meds given and route, prescriptions, significant lab abnormalities, going to OR and other pertinent info. @ -The patient was seen and evaluated emergency department. Physical exam, the patient was resting in bed without any acute distress. The patient had mild symptoms on my evaluation however stated that her symptoms were greatly improved from when she first arrived. Vital signs remained stable. The patient was initially tachycardic but on my evaluation her heart rate is in the 90s. Laboratory workup, x-ray and EKG were obtained in triage. All workup was negative and within normal limits. On reevaluation, the patient stated that she didn't have any further symptoms however due to the patient's elevated heart rate and chest pressure, the patient was offered observation to be evaluated by cardiology. The patient however stated that she would prefer to be discharged to follow-up as an outpatient as she didn't have any further symptoms. I did agree with this plan as she did not have any other risk factors and her heart score was 1. The patient was advised report back to the [facility] department should worsening symptoms and the patient was agreeable to this. All of her questions were answered and the patient was discharged home in stable condition. Undiagnosed new problem with uncertain prognosis? @ -No Drug Therapy requiring intensive monitoring for toxicity (Heparin, Nitro, Insulin, Cardizem)? @ -No Were any procedures done? @ -No Diagnosis/symptom? @ -Chest pain and palpitations, NOS Acute, or Chronic, or Acute on Chronic? @ -Acute Uncomplicated (without systemic symptoms) or Complicated (systemic symptoms)? @ -Uncomplicated Side effects of treatment? @ -No Exacerbation, Progression, or Severe Exacerbation? @ -No Poses a threat to life or bodily function? How? (Chest pain, [place], [place], pneumonia, PE, COPD, DKA, ARF, appy, cholecystitis, CVA, Diverticulitis, Homicidal, Suicidal, threat to staff... and all critical care pts) @ -No (Best George) Disposition <Betty Barraza - Last Filed: 05/16/23 21:31> Is patient prescribed a controlled substance at d/c from ED?: No Time of Disposition: 22:30 <Best George - Last Filed: 05/16/23 23:37> Clinical Impression: Chest pain, Palpitation Disposition: HOME SELF-CARE Condition: Stable Instructions (If sedation given, give patient instructions): Chest Pain (ED), Heart Palpitations (DC) Referrals: Kyree Pérez MD [Primary Care Provider] - 1-2 days
[2023-05-16 20:23] VITALS: TEMP 98.6
[2023-05-16 21:04] LABS: Basophils % (A) 0 %; Eosinophils # (A) 0.1 k/uL (0-0.7); Eosinophils % (A) 2 %; HCT 36.6 % (34.0-46.0); HGB 12.2 gm/dL (11.4-16.0); Lymphocytes # (A) 2.9 k/uL (1.0-4.8); Lymphocytes % (A) 39 %; MCH 30.7 pg (25.0-35.0); MCHC 33.5 g/dL (31.0-37.0); MCV 91.6 fL (80.0-100.0); Mean Platelet Volume 7.6; Monocytes # (A) 0.5 k/uL (0-1.0); Monocytes % (A) 7 %; Neutrophils # (A) 3.8 k/uL (1.3-7.7); Neutrophils % (A) 50 %; Platelet Count 234 k/uL (150-450); RBC 3.99 m/uL (3.80-5.40); RDW 12.1 % (11.5-15.5); WBC 7.5 k/uL (3.8-10.6)
--- NOTE | 2023-05-16 21:16 | XR ---
EXAMINATION TYPE: XR chest 2V DATE OF EXAM: 05/16/2023 8:57 PM CLINICAL INDICATION:Female, 52 years old with history of Chest Pain; [facility] COMPARISON: Chest radiographs from 11/03/2015 TECHNIQUE: XR chest 2V Frontal and lateral views of the chest. FINDINGS: Lungs/Pleura: There is no evidence of pleural effusion, focal consolidation, or pneumothorax. Pulmonary vascularity: Unremarkable. Heart/mediastinum: Cardiomediastinal silhouette is unremarkable. Musculoskeletal: No acute osseous pathology. IMPRESSION: No acute cardiopulmonary disease/process.
[2023-05-16 21:19] LABS: ALT 25 U/L (4-34); AST 50 U/L (14-36); African American GFR (CKD) 79 (>60 ml/min/1.73 sqM); Albumin 5.1 g/dL (3.5-5.0); Alkaline Phosphatase 51 U/L (38-126); Anion Gap 12 mmol/L; Blood Urea Nitrogen 12 mg/dL (7-17); Calcium 9.9 mg/dL (8.4-10.2); Carbon Dioxide 21 mmol/L (22-30); Chloride 106 mmol/L (98-107); Glucose 121 mg/dL (74-99); Magnesium 1.8 mg/dL (1.6-2.3); Non-African American GFR(CKD) 68 (>60 ml/min/1.73 sqM); Sodium 139 mmol/L (137-145); Total Bilirubin 0.6 mg/dL (0.2-1.3); Total Protein 8.3 g/dL (6.3-8.2)
[2023-05-16 21:40] LABS: Partial Thromboplastin Time 22.1 sec (22.0-30.0); Potassium 3.9 mmol/L (3.5-5.1); Prothrombin Time 10.4 sec (9.0-12.0)
[2023-05-16 21:50] VITALS: RESP 18
[2023-05-16 23:17] VITALS: BP 121/85; PULSE 87
== END 2023-05-16 23:18 | disposition home or self-care (01) ==
LOC: EC 20:16
DX: R07.89 Other chest pain (principal); R00.2 Palpitations; R00.0 Tachycardia, unspecified; Z87.891 Personal history of nicotine dependence; Z88.0 Allergy status to penicillin; Z91.018 Allergy to other foods
CPT/HCPCS: 36415; 71046; 80053; 83735; 84484; 85025; 85379; 85610; 85730; 93005; 99285

== ENCOUNTER → 2023-06-06 | Outpatient (CLI) | payer BC ==
--- NOTE | 2023-06-09 21:19 | CT ---
EXAMINATION TYPE: CT chest wo con DATE OF EXAM: 06/06/2023 COMPARISON: 11/16/2019 HISTORY: 52-year-old female R91.8, abnormal lung findings TECHNIQUE: Contiguous axial scanning of the chest without IV contrast. Coronal/sagittal reconstructio ns performed. CT DLP: 139.00mGycm. Automatic exposure control utilized for a dose reduction. FINDINGS: There are bilateral breast implants. Heart normal size without pericardial effusion. Aorta normal caliber with conventional arch vessel branching anatomy. No thoracic lymphadenopathy by CT size criteria. Surgical clips in the left axilla. There appears to be a nodule posterior margin of the right thyroid lobe measuring 1.1 cm, unchanged f rom 2020. There is biapical pleural parenchymal scarring present but no consolidation or pleural effusion. Tiny 3 mm anterior right midlung pulmonary nodule, axial images 31 not well seen previously. 2 mm lateral right midlung pulmonary nodule, axial image 33 now well seen previously. Visualized upper abdomen shows no gross abnormality. Bones: Mild degenerative disc disease throughout the mid thoracic spine. IMPRESSION: 1. A couple tiny pulmonary nodules measuring up to 3 mm in the right midlung not well-seen in 2020. S mall size suggests a benign etiology. Consider a 6-12 month follow-up to ensure stability. 2. No acute pulmonary process. 3. Previous bilateral breast implants and surgical clips in the left axilla.
== END | disposition home or self-care (01) ==
LOC: RADCTMAIN 14:17
PROVIDERS: ATTEND Family Medicine
DX: R91.8 Other nonspecific abnormal finding of lung field (principal); Z98.82 Breast implant status
CPT/HCPCS: 71250

== ENCOUNTER → 2023-06-06 | Outpatient (CLI) | payer BC ==
--- NOTE | 2023-06-06 19:46 | CA ---
Transthoracic Echo Report Name: Ayaka Posada Age: 52 Gender: F : 1970 Exam Date: 06/06/2023 14:18 Exam Location: [facility] Ht (in): 66 Wt (lb): 135 Ordering Physician: Kyree Pérez MD Attending/Referring Phys: Carolann Meier Bible Worker Kita Lu [facility] Procedure CPT: Indications: R00.2 palpitations Cardiac Hx: Technical Quality: Technically difficult study Contrast 1: Total Dose (mL): Contrast 2: Total Dose (mL): MEASUREMENTS (Male / Female) Normal Values 2D ECHO LV Diastolic Diameter PLAX 4.1 cm 4.2 - 5.9 / 3.9 - 5.3 cm LV Systolic Diameter PLAX 2.9 cm IVS Diastolic Thickness 0.7 cm 0.6 - 1.0 / 0.6 - 0.9 cm LVPW Diastolic Thickness 0.7 cm 0.6 - 1.0 / 0.6 - 0.9 cm LV Relative Wall Thickness 0.4 LVOT Diameter 2.0 cm Aortic Root Diameter 3.0 cm Ascending Aorta Diameter 3.0 cm M-MODE Aortic Root Diameter MM 2.5 cm LA Systolic Diameter MM 2.8 cm LA Ao Ratio MM 1.2 AV Cusp Separation MM 1.7 cm DOPPLER AV Peak Velocity 109.4 cm/s AV Peak Gradient 4.8 mmHg AV Mean Velocity 73.6 cm/s AV Mean Gradient 2.5 mmHg AV Velocity Time Integral 17.3 cm LVOT Peak Velocity 81.1 cm/s LVOT Peak Gradient 2.6 mmHg LVOT Velocity Time Integral 16.2 cm LVOT Stroke Volume 53.3 cm??? LVOT Stroke Volume Index 31.5 ml/m??? LVOT Cardiac Index 2461.4 cm???/min???m??? AV Area Cont Eq vti 3.1 cm??? AV Area Cont Eq pk 2.4 cm??? Mitral E Point Velocity 68.6 cm/s Mitral A Point Velocity 65.3 cm/s Mitral E to A Ratio 1.0 MV Deceleration Time 193.6 ms LV E' Lateral Velocity 9.8 cm/s Mitral E to LV E' Lateral Ratio 7.0 LV E' Septal Velocity 11.6 cm/s Mitral E to LV E' Septal Ratio 5.9 TR Peak Velocity 241.6 cm/s TR Peak Gradient 23.4 mmHg Right Atrial Pressure 3.0 mmHg Pulmonary Artery Systolic Pressu 26.4 mmHg Right Ventricular Systolic Press 26.4 mmHg FINDINGS Left Ventricle Left ventricular wall thickness normal. Left ventricular cavity size normal. Normal left ventricular systolic function with no obvious regional wall motion abnormalities. Left ventricular ejection fraction is estimated at 50-55%. Right Ventricle Right ventricle not well visualized. Right Atrium Normal right atrial size. Left Atrium Normal left atrial size. Mitral Valve Structurally normal mitral valve. Mitral valve thickened. No mitral regurgitation. Aortic Valve Trileaflet aortic valve. Thickening of the aortic valve cusps. No aortic regurgitation. Tricuspid Valve Structurally normal tricuspid valve. Mild tricuspid regurgitation. Pulmonic Valve Pulmonic valve not well visualized. Trace pulmonic regurgitation. Pericardium Minimal pericardial effusion (normal variant). Aorta Normal size aortic root and proximal ascending aorta. CONCLUSIONS Normal LV size and systolic function Previewed by: Dr. Satinder Ramirez MD (Electronically Signed) Final Date: 06 June 2023 19:45
== END | disposition home or self-care (01) ==
LOC: RADECHMAIN 14:09
PROVIDERS: ATTEND Family Medicine
DX: R00.2 Palpitations (principal)
CPT/HCPCS: 93306

== ENCOUNTER → 2023-07-20 | Outpatient (CLI) | payer BC ==
[2023-07-20 17:23] LABS: Basophils # (A) 0.03 X 10*3/uL (0.00-0.10); Basophils % (A) 0.9 %; Eosinophils # (A) 0.13 X 10*3/uL (0.04-0.35); Eosinophils % (A) 3.9 %; HCT 32.7 % (37.2-46.3); HGB 10.9 g/dL (12.0-15.0); Immature Grans, Automated 0 %; Lymphocytes # (A) 1.77 X 10*3/uL (0.90-5.00); Lymphocytes % (A) 52.7 %; MCH 30.1 pg (27.0-32.0); MCHC 33.3 g/dL (32.0-37.0); MCV 90.3 FL (80.0-97.0); Mean Platelet Volume 9.7 FL (9.5-12.2); Monocytes # (A) 0.43 X 10*3/uL (0.20-1.00); Monocytes % (A) 12.8 %; NRBC Per 100 WBC 0 X 10*3/uL (0.00-0.01); Neutrophils % (A) 29.7 %; Platelet Count 199 X 10*3/uL (140-440); RBC 3.62 X 10*6/uL (4.10-5.20); WBC 3.36 X 10*3/uL (4.50-10.00)
[2023-07-20 17:30] LABS: ALT 17 U/L (8-44); AST 23 U/L (13-35); Albumin 4.3 g/dL (3.8-4.9); Albumin/Globulin Ratio 2.39 Ratio (1.60-3.17); Alkaline Phosphatase 42 U/L (41-126); Blood Urea Nitrogen 10.8 mg/dL (9.0-27.0); Calcium 9.3 mg/dL (8.7-10.3); Carbon Dioxide 23.2 mmol/L (21.6-31.8); Chloride 107 mmol/L (96-109); Chol/HDL Ratio 1.85 Ratio; Globulin 1.8 g/dL (1.6-3.3); Glucose 86 mg/dL (70-110); LDL Cholesterol,Calculated 66.7 mg/dL (0.0-131.0); Potassium 3.9 mmol/L (3.5-5.5); Sodium 140 mmol/L (135-145); T4, Free (Free Thyroxine) 1.08 ng/dL (0.80-1.80); Total Bilirubin 0.3 mg/dL (0.3-1.2); Total Protein 6.1 g/dL (6.2-8.2); VLDL Calculation 13.68 mg/dL (5.00-40.00)
== END | disposition home or self-care (01) ==
LOC: LABWHC1 07:24
PROVIDERS: ATTEND Family Medicine
DX: Z00.00 Encounter for general adult medical examination without abnormal findings (principal); E03.9 Hypothyroidism, unspecified
CPT/HCPCS: 36415; 80053; 80061; 83036; 84439; 84443; 84481; 85025; 86376

== ENCOUNTER → 2023-11-29 | Outpatient (CLI) | payer BC ==
--- NOTE | 2023-11-29 16:39 | CT ---
EXAMINATION TYPE: CT chest wo con DATE OF EXAM: 11/29/2023 COMPARISON: 06/06/2023 HISTORY: F/U NODULE CT DLP: 393 mGycm, Automated exposure control for dose reduction was used. CONTRAST: Performed injected with mL of . TECHNIQUE: Axial images were obtained at 5 mm thick sections. Reconstructed images are reviewed on [employer] computer in the coronal plane. FINDINGS: There may be a hypodense mass in the posterior right lobe thyroid measuring 2.0 x 1.6 cm. A dditional evaluation with ultrasound is recommended Bilateral breast prostheses are present. Minimal increased lung markings at the lung apices, present previously and appear stable. Previous right midlung nodule not identified on current exam No enlarged mediastinal or hilar adenopathy is evident. The ascending aorta diameter at the level o f the main pulmonary artery is 3.2 cm. The main pulmonary artery diameter at the bifurcation is 2.[address] sections are obtained through the upper abdomen. Abdomen is essentially unremarkable. IMPRESSION: 1. No suspicious persistent nodularity. Follow-up exam in one year is recommended. 2. Large mass posterior right thyroid. Additional evaluation with thyroid ultrasound is recommended
== END | disposition home or self-care (01) ==
LOC: RADCTMAIN 15:52
PROVIDERS: ATTEND Family Medicine
DX: R91.1 Solitary pulmonary nodule (principal); E07.9 Disorder of thyroid, unspecified
CPT/HCPCS: 71250

== ENCOUNTER → 2023-12-08 | Outpatient (CLI) | payer BC ==
--- NOTE | 2023-12-08 16:30 | US ---
EXAMINATION TYPE: US thyroid st tissue head/neck DATE OF EXAM: 12/08/2023 COMPARISON: NONE CLINICAL INDICATION: Female, 52 years old with history of E04.1 NONTOXIC SINGLE THYROID NODULE; Right thyroid nodule. History of biopsy 6 months ago at [facility] GLAND SIZE: Right Lobe: 4.5 x 1.3 x 1.5 cm Overall Parenchyma: homogeneous Left Lobe: 4.2 x 1.3 x 1.3 cm Overall Parenchyma: homogeneous Isthmus Thickness: 0.2 cm NODULES RIGHT: # of nodules measured on right: 1 1. 3.2 X 2.0 x 2.4 cm, mid/lower lateral, mixed cystic and solid, hypoechoic nodule, which is wider than tall, with smooth margins, with echogenic foci. Prior size: no prior here LEFT: # of nodules measured on left: 0 ISTHMUS: # of nodules measured in the isthmus: 0 Bilateral neck scanned, no evidence of lymphadenopathy. IMPRESSION: Moderately Suspicious: FNA if ? 1.5 cm; Follow if ? 1 cm at 1, 2, 3, and 5 y 2017 ACR TI-RADS LEVEL: TR4 *Highest TI-RADS level nodule reported
== END | disposition home or self-care (01) ==
LOC: RADUSWWP 14:25
PROVIDERS: ATTEND Family Medicine
DX: E04.1 Nontoxic single thyroid nodule (principal)
CPT/HCPCS: 76536

== ENCOUNTER 2024-07-14 13:47 | Emergency (ER) | payer BC ==
[2024-07-14 13:57] VITALS: TEMP 99
--- NOTE | 2024-07-14 14:15 | ED ---
ENT HPI - General Chief complaint: ENT Stated complaint: Swelling right side of face and neck Time Seen by Provider: 07/14/24 14:05 Source: patient, RN notes reviewed Mode of arrival: ambulatory Limitations: no limitations - History of Present Illness Initial comments: 53-year-old female presenting with right-sided neck swelling x 1 day. States last night she began to feel swelling/pain in the right neck radiating to the right side of face that has been worsening in severity. Patient went to urgent care last night where they told her it was a swollen salivary gland and discharged her. Patient states today symptoms are worsening and she feels as though it is affecting her voice as well. Denies difficulty swallowing or breathing. Denies fever, vomiting. She has never had this before. - Related Data Home Medications Medication Instructions Recorded Confirmed Venlafaxine HCl [Effexor] 75 mg PO HS 11/08/19 07/14/24 Cetirizine HCl [Zyrtec] 10 mg PO HS 07/14/24 07/14/24 Omeprazole [PriLOSEC] 20 mg PO HS 07/14/24 07/14/24 Tamoxifen Citrate [Nolvadex] 20 mg PO HS 07/14/24 07/14/24 Previous Rx's Medication Instructions Recorded Azithromycin [Zithromax] 500 mg PO DAILY #5 tab 07/14/24 Allergies Allergy/AdvReac Type Severity Reaction Status Date / Time amoxicillin [Amoxicillin] Allergy Rash/Hives Verified 07/14/24 15:48 Penicillins Allergy Rash/Hives/ Verified 07/14/24 15:48 Swelling Review of Systems ROS Statement: Those systems with pertinent positive or pertinent negative responses have been documented in the HPI. ROS Other: All systems not noted in ROS Statement are negative. Past Medical History Past Medical History: Cancer, GERD/Reflux, Thyroid Disorder Additional Past Medical History / Comment(s): hiatal hernia, hx. breast cancer 2016-chemo & radiation, probable celiac disease, RECENT DX EARLY [facility] History of Any Multi-Drug Resistant Organisms: None Reported Past Surgical History: Breast Surgery Additional Past Surgical History / Comment(s): bilateral mastectomy w/reconstruction,lymphnodes removed-states "cannot have IVs to left arm." COLONOSCOPY. EGD 11/17/16 Past Anesthesia/Blood Transfusion Reactions: Postoperative Nausea & Vomiting (PONV) Past Psychological History: No Psychological Hx Reported Smoking Status: Never smoker Past Alcohol Use History: Occasional Past Drug Use History: None Reported - Past Family History Mother Family Medical History: No Reported History General Exam Limitations: no limitations General appearance: alert, in no apparent distress Head exam: Present: atraumatic, normocephalic, normal inspection Eye exam: Present: normal appearance, PERRL, EOMI. Absent: scleral icterus, conjunctival injection, periorbital swelling ENT exam: Present: normal exam, normal oropharynx, mucous membranes moist, TM's normal bilaterally, other (No obvious dental caries or abscesses) Neck exam: Present: tenderness, full ROM, lymphadenopathy. Absent: normal inspection (Mild right-sided edema and tenderness to palpation. Positive anterior cervical lymph nodes on right side), meningismus, thyromegaly Respiratory exam: Present: normal lung sounds bilaterally. Absent: respiratory distress, wheezes, rales, rhonchi, stridor Cardiovascular Exam: Present: regular rate, normal rhythm, normal heart sounds. Absent: systolic murmur, diastolic murmur, rubs, gallop, clicks Neurological exam: Present: alert, oriented X3 Psychiatric exam: Present: normal affect, normal mood Skin exam: Present: warm, dry, intact, normal color. Absent: rash Course Vital Signs 07/14/24 07/14/24 13:55 15:09 Temperature 99.0 F Pulse Rate 68 67 Respiratory 18 16 Rate Blood Pressure 124/74 116/80 O2 Sat by Pulse 100 100 Oximetry Medical Decision Making - Medical Decision Making Was pt. sent in by a medical professional or institution (, PA, POLE CUTTER, urgent care, hospital, or [place] health care facility...) When possible be specific @ -No Did you speak to anyone other than the patient for history (EMS, parent, family, police, friend...)? What history was obtained from this source @ -No Did you review nursing and triage notes (agree or disagree)? Why? @ -I reviewed and agree with nursing and triage notes Were old charts reviewed (outside hosp., previous admission, EMS record, old EKG, old radiological studies, urgent care reports/EKG's, [place] health care facility records)? Report findings @ -No old charts were reviewed Differential Diagnosis (chest pain, altered mental status, abdominal pain women, abdominal pain men, vaginal bleeding, weakness, fever, dyspnea, syncope, headache, dizziness, GI bleed, back pain, seizure, CVA, palpatations, mental health, musculoskeletal)? @ -Strep pharyngitis, otitis media, dental abscess, retropharyngeal abscess EKG interpreted by me (3pts min.). @ -None X-rays interpreted by me (1pt min.). @ -None done CT interpreted by me (1pt min.). @ -CT neck reveals sialadenitis of right submandibular gland with calculus in [place]'s duct measuring 3 mm, right thyroid gland extends into superior mediastinum with thyroid nodule present, slightly larger than prior CT on 06/06/2023 U/S interpreted by me (1pt. min.). @ -None done What testing was considered but not performed or refused? (CT, X-rays, U/S, labs)? Why? @ -None What meds were considered but not given or refused? Why? @ -None Did you discuss the management of the patient with other professionals (jenna lucas i.e. , PA, POLE CUTTER, lab, RT, psych nurse, social worker assistant, web application developer, teacher, banking services officer, telephonic nurse case manager)? Give summary @ -No Was smoking cessation discussed for >3mins.? @ -No Was critical care preformed (if so, how long)? @ -No Were there social determinants of health that impacted care today? How? (Homelessness, low income, unemployed, alcoholism, drug addiction, transportation, low edu. Level, literacy, decrease access to med. care, shelter, rehab)? @ -No Was there de-escalation of care discussed even if they declined (Discuss DNR or withdrawal of care, Hospice)? DNR status @ -No What co-morbidities impacted this encounter? (DM, HTN, Smoking, COPD, CAD, Cancer, CVA, ARF, Chemo, Hep., AIDS, mental health diagnosis, sleep apnea, morbid obesity)? @ -None Was patient admitted / discharged? Hospital course, mention meds given and route, prescriptions, significant lab abnormalities, going to OR and other pertinent info. @ -Discharge. This is a 53-year-old female presenting with right neck swelling x 1 day. No red flag symptoms. Vital signs within acceptable limits. No red flag symptoms. No difficulty breathing or swallowing. On examination, there is right sided neck swelling and tenderness. Patient was given Decadron. Lab work unremarkable. CT neck reveals sialadenitis of right submandibular gland with calculus and Dutch's duct measuring 3 mm. Findings discussed with patient. Advised to consume hard candies and lozenges. Prescribed antibiotic to pharmacy. Appropriate return parameters and follow-up care discussed. Case was discussed with my ED attending Dr. Miner. Undiagnosed new problem with uncertain prognosis? @ -No Drug Therapy requiring intensive monitoring for toxicity (Heparin, Nitro, Insulin, Cardizem)? @ -No Were any procedures done? @ -No Diagnosis/symptom? @ -Sialoadenitis Acute, or Chronic, or Acute on Chronic? @ -Acute Uncomplicated (without systemic symptoms) or Complicated (systemic symptoms)? @ -Uncomplicated Side effects of treatment? @ -No Exacerbation, Progression, or Severe Exacerbation? @ -No Poses a threat to life or bodily function? How? (Chest pain, [place], [place], pneumonia, PE, COPD, DKA, ARF, appy, cholecystitis, CVA, Diverticulitis, Homicidal, Suicidal, threat to staff... and all critical care pts) @ -No - Lab Data Result diagrams: 07/14/24 14:35 07/14/24 14:35 Lab Results 07/14/24 07/14/24 07/14/24 Range/Units 14:35 14:35 14:35 WBC 4.8 (3.8-10.6) k/uL RBC 3.90 (3.80-5.40) m/uL Hgb 11.8 (11.4-16.0) gm/dL Hct 35.2 (34.0-46.0) % MCV 90.3 (80.0-100.0) fL MCH 30.3 (25.0-35.0) pg MCHC 33.6 (31.0-37.0) g/dL RDW 11.9 (11.5-15.5) % Plt Count 208 (150-450) k/uL MPV 6.9 Neutrophils % 55 % Lymphocytes % 34 % Monocytes % 7 % Eosinophils % 1 % Basophils % 1 % Neutrophils # 2.6 (1.3-7.7) k/uL Lymphocytes # 1.6 (1.0-4.8) k/uL Monocytes # 0.3 (0-1.0) k/uL Eosinophils # 0.1 (0-0.7) k/uL Basophils # 0.0 (0-0.2) k/uL Sodium 140 (137-145) mmol/L Potassium 3.8 (3.5-5.1) mmol/L Chloride 109 H (98-107) mmol/L Carbon Dioxide 26 (22-30) mmol/L Anion Gap 5 mmol/L BUN 15 (7-17) mg/dL Creatinine 0.80 (0.52-1.04) mg/dL Est GFR (CKD-EPI)AfAm >90 (>60 ml/min/1.73 sqM) Est GFR (CKD-EPI)NonAf 85 (>60 ml/min/1.73 sqM) Glucose 96 (74-99) mg/dL Calcium 9.2 (8.4-10.2) mg/dL Total Bilirubin 0.3 (0.2-1.3) mg/dL AST 35 (14-36) U/L ALT 19 (4-34) U/L Alkaline Phosphatase 41 (38-126) U/L Total Protein 6.5 (6.3-8.2) g/dL Albumin 4.2 (3.5-5.0) g/dL Influenza Type A (PCR) (Not Detectd) Influenza Type B (PCR) (Not Detectd) RSV (PCR) (Not Detectd) SARS-CoV-2 (PCR) (Not Detectd) Group A Strep (PCR) NOT DETECTED (Not Detectd) 07/14/24 Range/Units 14:35 WBC (3.8-10.6) k/uL RBC (3.80-5.40) m/uL Hgb (11.4-16.0) gm/dL Hct (34.0-46.0) % MCV (80.0-100.0) fL MCH (25.0-35.0) pg MCHC (31.0-37.0) g/dL RDW (11.5-15.5) % Plt Count (150-450) k/uL MPV Neutrophils % % Lymphocytes % % Monocytes % % Eosinophils % % Basophils % % Neutrophils # (1.3-7.7) k/uL Lymphocytes # (1.0-4.8) k/uL Monocytes # (0-1.0) k/uL Eosinophils # (0-0.7) k/uL Basophils # (0-0.2) k/uL Sodium (137-145) mmol/L Potassium (3.5-5.1) mmol/L Chloride (98-107) mmol/L Carbon Dioxide (22-30) mmol/L Anion Gap mmol/L BUN (7-17) mg/dL Creatinine (0.52-1.04) mg/dL Est GFR (CKD-EPI)AfAm (>60 ml/min/1.73 sqM) Est GFR (CKD-EPI)NonAf (>60 ml/min/1.73 sqM) Glucose (74-99) mg/dL Calcium (8.4-10.2) mg/dL Total Bilirubin (0.2-1.3) mg/dL AST (14-36) U/L ALT (4-34) U/L Alkaline Phosphatase (38-126) U/L Total Protein (6.3-8.2) g/dL Albumin (3.5-5.0) g/dL Influenza Type A (PCR) Not Detected (Not Detectd) Influenza Type B (PCR) Not Detected (Not Detectd) RSV (PCR) Not Detected (Not Detectd) SARS-CoV-2 (PCR) Not Detected (Not Detectd) Group A Strep (PCR) (Not Detectd) Disposition Clinical Impression: Sialadenitis Disposition: HOME SELF-CARE Condition: Stable Instructions (If sedation given, give patient instructions): Sialoadenitis (ED) Additional Instructions: Take azithromycin once daily for 5 days. Hard candy and lozenges will help to unclog salivary gland. Follow-up with ENT specialist and PCP. Please return to the Emergency Department if symptoms worsen or any other concerns. Prescriptions: Azithromycin [Zithromax] 500 mg PO DAILY #5 tab Is patient prescribed a controlled substance at d/c from ED?: No Referrals: Kyree Pérez MD [Primary Care Provider] - 1-2 days Jn Hawkins MD [STAFF PHYSICIAN] - 1-2 days Time of Disposition: 16:17
[2024-07-14 14:46] LABS: Basophils % (A) 1 %; Eosinophils # (A) 0.1 k/uL (0-0.7); Eosinophils % (A) 1 %; HCT 35.2 % (34.0-46.0); HGB 11.8 gm/dL (11.4-16.0); Lymphocytes # (A) 1.6 k/uL (1.0-4.8); Lymphocytes % (A) 34 %; MCH 30.3 pg (25.0-35.0); MCHC 33.6 g/dL (31.0-37.0); MCV 90.3 fL (80.0-100.0); Mean Platelet Volume 6.9; Monocytes # (A) 0.3 k/uL (0-1.0); Monocytes % (A) 7 %; Neutrophils # (A) 2.6 k/uL (1.3-7.7); Neutrophils % (A) 55 %; Platelet Count 208 k/uL (150-450); RDW 11.9 % (11.5-15.5); WBC 4.8 k/uL (3.8-10.6)
[2024-07-14 14:57] LABS: ALT 19 U/L (4-34); AST 35 U/L (14-36); African American GFR (CKD) >90 (>60 ml/min/1.73 sqM); Albumin 4.2 g/dL (3.5-5.0); Alkaline Phosphatase 41 U/L (38-126); Anion Gap 5 mmol/L; Blood Urea Nitrogen 15 mg/dL (7-17); Calcium 9.2 mg/dL (8.4-10.2); Carbon Dioxide 26 mmol/L (22-30); Chloride 109 mmol/L (98-107); Glucose 96 mg/dL (74-99); Non-African American GFR(CKD) 85 (>60 ml/min/1.73 sqM); Potassium 3.8 mmol/L (3.5-5.1); Sodium 140 mmol/L (137-145); Total Bilirubin 0.3 mg/dL (0.2-1.3); Total Protein 6.5 g/dL (6.3-8.2)
[2024-07-14] MEDS: DEXAMETHASONE SOD PHOSPHATE 10 MG/ML 1 ML VIAL IVP STA (15:08)
[2024-07-14 15:09] VITALS: RESP 16
--- NOTE | 2024-07-14 15:54 | CT ---
EXAMINATION TYPE: CT soft tissue neck w con DATE OF EXAM: 07/14/2024 3:33 PM COMPARISON: 11/29/2023 CLINICAL INDICATION: Female, 53 years old with history of right neck swelling/pain; Right side neck a nd facial pain and swelling since dinner last night TECHNIQUE: Standard enhanced CT of the neck. Axial sections with coronal and sagittal reformats were obtained. Contrast used:100 mL of Isovue 300 with IV Contrast, (None if empty) Oral contrast used: (None if empty) CT DLP: 170.1 mGycm, Automated exposure control for dose reduction was used. FINDINGS: Brain: Visualized portions are grossly unremarkable. Orbits: Unremarkable Sinuses: Grossly unremarkable. Spaces of the neck: The right submandibular gland is a asymmetrically enlarged with surrounding Fat s tranding changes. A calculus measuring 3 mm in is in Wolfe's duct Musculoskeletal: No acute osseous pathology. Lymph nodes: Multiple nonenlarged lymph nodes are seen along both anterior chains of the neck. Vascular structures: Visualized major arteries are patent without evidence of aneurysm. Thoracic Inlet/airway: Airway is patent. The lung apices are clear. Soft tissues/Thyroid: Inferior right thyroid gland nodule measuring up to 20 x 23 mm. This is in the superior mediastinum. Other: none. IMPRESSION 1. Sialadenitis of the right submandibular gland with calculus in the Wolfe's duct measuring 3 mm. 2. Right thyroid gland extends in the superior mediastinum with thyroid nodule present. Consider fur ther evaluation with thyroid ultrasound if not recently performed slightly larger than prior CT on . [facility], , 07/14/2024 3:52 PM
[2024-07-14] MEDS: AZITHROMYCIN 500 MG TAB PO STA (16:40)
[2024-07-14 16:43] VITALS: BP 115/33; PULSE 59
== END 2024-07-14 17:55 | disposition home or self-care (01) ==
LOC: EC 13:47
DX: K11.20 Sialoadenitis, unspecified (principal); Z11.52 Encounter for screening for COVID-19; Z88.1 Allergy status to other antibiotic agents; Z88.0 Allergy status to penicillin
CPT/HCPCS: 99284; 96374; 36415; 87651; 80053; 85025; 87636; 70491; J1100; Q9967; 99285

== ENCOUNTER → 2024-08-02 | Outpatient (CLI) | payer BC ==
--- NOTE | 2024-08-02 15:45 | US ---
EXAMINATION TYPE: US thyroid st tissue head/neck DATE OF EXAM: 08/02/2024 COMPARISON: CT neck 07/14/2024, thyroid ultrasound 12/08/2023 CLINICAL INDICATION: Female, 53 years old with history of E04.1 NONTOXIC SINGLE THYROID NODULE; thyro id nodules. TECHNIQUE: Grayscale and color Doppler imaging of the thyroid gland. FINDINGS: GLAND SIZE: Right Lobe: 5.5 x 2.5 x 1.6 cm Overall Parenchyma: heterogeneous Left Lobe: 4.3 x 1.8 x 1.3 cm Overall Parenchyma: homogeneous Isthmus Thickness: .2 cm NODULES RIGHT: # of nodules measured on right: 1 1. 3.2 X 2.1 x 2.2 cm, lower , solid or almost completely solid, hypoechoic nodule, which is wider than tall, with smooth margins, without echogenic foci. TR 4. Prior size: 3.2 x 2.0 x 2.4 cm LEFT: # of nodules measured on left: 0 ISTHMUS: # of nodules measured in the isthmus: 0 Bilateral neck scanned, no evidence of lymphadenopathy. IMPRESSION: Stable right thyroid lobe dominant 3.2 cm TR 4 nodule. Fine-needle aspiration is again recommended if not previously performed. [facility], , 08/02/2024 3:43 PM
== END | disposition home or self-care (01) ==
LOC: RADUSWWP 14:48
PROVIDERS: ATTEND Family Medicine
DX: E04.1 Nontoxic single thyroid nodule (principal)
CPT/HCPCS: 76536

== ENCOUNTER → 2024-12-20 | Outpatient (CLI) | payer BC ==
[2024-12-21 02:22] LABS: Appearance,Urine Clear (Clear); Basophils # (A) 0.06 X 10*3/uL (0.00-0.10); Basophils % (A) 1.1 %; Bilirubin,Urine Negative (Negative); Blood,Urine Negative (Negative); Color,Urine Yellow (Yellow); Eosinophils # (A) 0.05 X 10*3/uL (0.04-0.35); Eosinophils % (A) 0.9 %; HCT 35.1 % (37.2-46.3); Immature Grans, Automated 0 %; Ketones,Urine Negative (Negative); Lymphocytes # (A) 2.22 X 10*3/uL (0.90-5.00); MCH 28.8 pg (27.0-32.0); MCHC 31.3 g/dL (32.0-37.0); MCV 91.9 FL (80.0-97.0); Mean Platelet Volume 10.7 FL (9.5-12.2); Monocytes # (A) 0.39 X 10*3/uL (0.20-1.00); Monocytes % (A) 7.4 %; NRBC Per 100 WBC 0 X 10*3/uL (0.00-0.01); Neutrophils # (A) 2.56 X 10*3/uL (1.80-7.70); Neutrophils % (A) 48.6 %; Nitrite,Urine Negative (Negative); PH, Urine 5.5; Platelet Count 242 X 10*3/uL (140-440); RBC 3.82 X 10*6/uL (4.10-5.20); RDW 13.3 % (11.5-14.5); Specific Gravity,Urine 1.011 (1.001-1.030); Urobilinogen,Urine 0.2 E.U./DL; WBC 5.28 X 10*3/uL (4.50-10.00)
[2024-12-21 02:55] LABS: ALT 19 U/L (8-44); AST 31 U/L (13-35); Albumin 4.7 g/dL (3.8-4.9); Albumin/Globulin Ratio 2.24 Ratio (1.60-3.17); Alkaline Phosphatase 58 U/L (41-126); BUN/Creat Ratio 16.78 Ratio (12.00-20.00); Blood Urea Nitrogen 15.1 mg/dL (9.0-27.0); Calcium 10.1 mg/dL (8.7-10.3); Cancer Antigen 125 11.4 U/mL (0.0-30.1); Carbon Dioxide 21.9 mmol/L (21.6-31.8); Chloride 104 mmol/L (96-109); Globulin 2.1 g/dL (1.6-3.3); Glucose 96 mg/dL (70-110); Potassium 3.7 mmol/L (3.5-5.5); Sodium 141 mmol/L (135-145); Total Bilirubin 0.2 mg/dL (0.3-1.2); Total Protein 6.8 g/dL (6.2-8.2)
== END | disposition home or self-care (01) ==
LOC: LABWHC1 15:39
PROVIDERS: ATTEND Obstetrics & Gynecology Gynecologic Oncology
DX: N95.0 Postmenopausal bleeding (principal)
CPT/HCPCS: 36415; 80053; 81003; 82378; 83036; 85025; 86304; 87086